=== PATIENT | male | born 1955 | race Caucasian/White ===

== ENCOUNTER → 2024-05-17 | Outpatient (REF) ==
[~2024-05-17] MED LIST: ALBU17IN INH; AMIT50TA PO; AMLO1TAB25 PO; IBUP600T42 PO; NEUR300C PO; OMEP40CA4 PO; TYLE325T5 PO
== END ==
LOC: M PLAIMG 10:10
PROVIDERS: ATTEND Internal Medicine
DX: R06.02 Shortness of breath (principal)